=== PATIENT | male | born 1965 | race Caucasian/White ===

== ENCOUNTER 2018-12-07 18:10 | Emergency (ER) | payer SELFPAY ==
--- NOTE | 2018-12-07 19:05 | UC ---
General HPI - HPI Summary HPI Summary: nataliya placed in scalp post injury by [facility] 5-7 days ago. pt here for removal. no VANG, neck pain, nausea. pt has no complaints. - History of Current Complaint Chief Complaint: Ghassan Stated Complaint: STAPLE REMOVAL NOT DONE HERE Time Seen by Provider: 12/07/18 19:01 Hx Obtained From: Patient Pain Intensity: 0 Associated Signs & Symptoms: Negative: Fever, Headache, Nausea, Vomiting - Allergy/Home Medications Allergies/Adverse Reactions: Allergies Allergy/AdvReac Type Severity Reaction Status Date / Time Penicillins Allergy Difficulty Verified 12/07/18 19:00 Breathing Home Medications: Home Medications Acetaminophen [Tylenol Extra Strength] 2 tab PO ONCE 12/07/18 [History Confirmed 12/07/18] PMH/Surg Hx/FS Hx/Imm Hx Previously Healthy: Yes - Surgical History Surgical History: Yes Surgery Procedure, Year, and Place: R hand sx 2008 - Family History Known Family History: Positive: Non-Contributory - Social History Occupation: Employed Full-time Lives: With Family Alcohol Use: Occasionally Substance Use Type: None Smoking Status (MU): Never Smoked Tobacco Review of Systems All Other Systems Reviewed And Are Negative: No Constitutional: Negative: Fever, Chills Skin: Negative: Rash Eyes: Negative: Blurred Vision Gastrointestinal: Negative: Nausea Neurological: Negative: Headache Physical Exam Triage Information Reviewed: Yes Appearance: Well-Appearing Vital Signs: Initial Vital Signs Temp 98.4 F 12/07/18 18:53 Pulse 89 12/07/18 18:53 Resp 16 12/07/18 18:53 BP 138/87 12/07/18 18:53 Pulse Ox 98 12/07/18 18:53 Vital Signs Reviewed: Yes Eyes: Positive: Conjunctiva Clear, Other: - PERRL, EOMI Neck: Positive: Supple, Nontender, No Lymphadenopathy Musculoskeletal: Positive: ROM Intact Neurological: Positive: Alert Psychological: Positive: Normal Response To Family, Age Appropriate Behavior Skin Exam: Normal, Other - 5 nataliya in front of scalp. healed with no erythema , swelling or discharge. Course/Dx - Course Course Of Treatment: nataliya removed, pt tolerated well. - Diagnoses Provider Diagnosis: Removal of nataliya Discharge - Sign-Out/Discharge Documenting (check all that apply): Patient Departure All imaging exams completed and their final reports reviewed: No Studies - Discharge Plan Condition: Stable Disposition: HOME Patient Education Materials: Stitches Removal (ED) Referrals: Ed Barajas MD [Medical Doctor] - If Needed - Billing Disposition and Condition Condition: STABLE Disposition: Home
== END 2018-12-07 19:10 | disposition home or self-care (01) ==
LOC: UCCORT 18:10
DX: Z48.02 Encounter for removal of sutures (principal)
CPT/HCPCS: 99201; G0463